=== PATIENT | female | born 1980 | race Caucasian/White ===

== ENCOUNTER 2016-09-30 13:34 | Emergency (ER) | payer SELFPAY ==
[~2016-09-30] VITALS: Ht 157.5 cm; Wt 102.0 kg
[~2016-09-30 13:34] MED LIST: AMOX/K CLAV875 M1 PO; BACTRIM DS1 TAB PO; DIFLUCAN150 MG PO; FLEXERIL PO; MEDDOSEPAK PO; NO MEDS; ROBITUSSIN AC10 ML PO; TIZANIDINE4 MG PO; ULTRAM50 M1 PO
[2016-09-30 14:29] LABS: HEMATOCRIT 38.4 % (37.0-47.0); HEMOGLOBIN 13.3 g/dl (12.0-16.0); IMMATURE GRANULOCYTES 0.2 % (0.0-1.0); MEAN CELL VOLUME 88.5 fL CALC (80.0-100.0); MEAN CORPUSCULAR HGB 30.6 pG CALC (26.0-32.0); MEAN CORPUSCULAR HGB CONC 34.6 g/L CALC (32.0-36.0); NEUT# 3.19 thou/uL (2.00-7.15); RED BLOOD COUNT 4.34 mill/uL (4.20-5.60); RED CELL DISTRI WIDTH 11.9 % (11.5-15.5)
[2016-09-30 14:41] LABS: ALBUMIN 4.2 g/dL (3.2-5.0); ALKALINE PHOSPHATASE 54 u/l (38-126); ANION GAP 15 (6-22 (CALC)); BILIRUBIN, TOTAL 0.4 mg/dL (0.0-1.4); BUN 16 mg/dL (7-17); BUN/CREATININE RATIO 21 (12-20 (CALC)); CALCIUM 9.5 mg/dL (8.4-10.2); CARBON DIOXIDE 24 mmol/l (22-30); CHLORIDE 107 mmol/l (95-108); CREATININE 0.8 mg/dL (0.5-1.0); GFR > 60 ML/MIN (>=60 (CALC)); GFR FOR AFR.AMER. > 60 ML/MIN (>=60 (CALC)); GLUCOSE 93 mg/dL (65-105); POTASSIUM 4.2 mmol/l (3.5-5.1); SGOT/AST 27 u/l (14-36); SGPT/ALT 35 u/l (9-52); SODIUM 141 mmol/l (137-146); TOTAL PROTEIN 7.4 g/dL (6.3-8.2)
[2016-09-30] MEDS ORDERED: MOTRIN800 MG PO (15:11)
[2016-09-30 15:55] VITALS: BP 129/74
== END 2016-09-30 15:55 | disposition home or self-care (01) | DRG 103 ==
LOC: ED 13:34
PROVIDERS: Emergency Medicine
DX: R51 Headache (principal)